=== PATIENT | female | born 1935 | race Caucasian/White ===

== ENCOUNTER → 2018-05-10 | Outpatient (CLI) | payer OTHER, BC ==
[~2018-05-10] MED LIST: ACET-1256 PO; BUME1TAB PO; CHOL1000 PO; CLR10 PO; FERR1TAB23 PO; LISI-725 PO; ONDA4TAB46 PO; POTA-74 PO; PRD5 PO; PRLSR20 PO; RMR15 PO; XRL10 PO
== END | disposition home or self-care (01) ==
LOC: C.RDSM 16:02
PROVIDERS: ATTEND Orthopaedic Surgery
DX: R52 Pain, unspecified (principal); Z96.643 Presence of artificial hip joint, bilateral